=== PATIENT | female | born 1955 | race Caucasian/White ===

== ENCOUNTER 2018-06-05 15:50 | Emergency (ER) | payer OTHER ==
[~2018-06-05] VITALS: Ht 167.6 cm; Wt 57.6 kg
[2018-06-05 15:55] VITALS: TEMP 36.6; Ht 167.6 cm; Wt 57.6 kg
--- NOTE | 2018-06-05 16:34 | DIAGNOSTIC IMAGING REPORT ---
L WRIST MIN 3 VIEWS ROUTINE CLINICAL HISTORY: Left wrist pain status post trauma COMPARISON: None. DISCUSSION: The bones are osteopenic. There is a transverse fracture through the distal radial metaphysis. The fracture is essentially nondisplaced. There is associated soft tissue swelling. IMPRESSION: Nondisplaced transverse fracture through the distal radial metaphysis Electronically signed by: Akshat Ratliff M.D. 06/05/2018 4:32 PM Dictated Date/Time: 06/05/2018 4:31 PM
--- NOTE | 2018-06-05 16:41 | EMERGENCY ROOM VISIT NOTE ---
ED Visit Note First contact with patient: 16:01 CHIEF COMPLAINT: Left wrist injury HISTORY OF PRESENT ILLNESS: This 63-year-old female presents to ER with chief complaint of left wrist injury. The patient states that she was trying to close a van door and her arm in an awkward position and her wrist bent backwards and she felt a pop in her wrist. The patient denies any numbness and tingling in her fingers. The patient states that she applied ice and lavender with pain relief. She did not take anything orally. The patient is right-hand dominant. The patient denies any prior fractures to the wrist. REVIEW OF SYSTEMS: 6 system review was performed and was negative unless stated otherwise in history of present illness. PMH: The patient is healthy; fibromyalgia SOCIAL HISTORY: Patient denies tobacco use but admits to occasional alcohol use. PHYSICAL EXAM: Vital Signs: Were reviewed reviewed Nurse's notes. GENERAL: 63- year-old white female appears in no acute distress. MENTAL Status: Alert and oriented 3. LEFT WRIST: There is some swelling noted over the distal forearm just proximal to the wrist joint. The patient is tender to palpation over this area. Limited range of motion secondary to pain. The skin is intact. Flexion and extension of the fingers is intact. The fingers are warm and well perfused. EMERGENCY DEPARTMENT COURSE: The patient was evaluated. The patient was offered pain medication but declined. X-ray of the left breast was ordered interpreted by the radiologist and myself. DIAGNOSTICS:L WRIST MIN 3 VIEWS ROUTINE CLINICAL HISTORY: Left wrist pain status post trauma COMPARISON: None. DISCUSSION: The bones are osteopenic. There is a transverse fracture through the distal radial metaphysis. The fracture is essentially nondisplaced. There is associated soft tissue swelling. IMPRESSION: Nondisplaced transverse fracture through the distal radial metaphysis Electronically signed by: Akshat Ratliff M.D. 06/05/2018 4:32 PM The patient was informed of the findings. The patient was placed in an Ortho- Glass splint. Post-splinting the patient was neurovascularly intact. The patient was independently evaluated by Dr. Rubalcava who agree with treatment plan. The patient was discharged home in stable condition. DIAGNOSIS: Fractured distal left radius DISCHARGE INSTRUCTIONS AND TREATMENT: Follow splint care instructions. Ibuprofen 400 mg every 6 hours with food for pain. Ice intermittently over the next 24 hours. Keep arm elevated as much as possible over the next 24 hours. Call orthopedics for follow-up appointment. Vital Signs Date Time Temp Pulse Resp B/P (MAP) Pulse Ox O2 Delivery O2 Flow Rate FiO2 06/05/18 15:55 36.6 62 17 108/63 100 Room Air Departure Information Patient Instructions [facility]
[2018-06-05 17:17] VITALS: BP 113/43; PULSE 59; O2SAT 98
--- NOTE | 2018-06-05 18:52 | EMERGENCY ROOM VISIT NOTE ---
ED Visit Note First contact with patient: 16:01 I have personally seen and evaluated the patient with the PA. I agree with the diagnosis and management decisions and have been personally involved in the case. Please see Kisha Stone PA-C's notes for further details of the history, physical and visit.
== END 2018-06-05 17:18 | disposition home or self-care (01) ==
LOC: C.EDB 15:52 → C.EDD 17:18
DX: S52.592A Other fractures of lower end of left radius, initial encounter for closed fracture (principal); X50.1XXA Overexertion from prolonged static or awkward postures, initial encounter; Y93.89 Activity, other specified